=== PATIENT | male | born 1970 | race African-American/Black ===

== ENCOUNTER 2020-07-27 10:05 | Inpatient (IN) | payer OTHER ==
[2020-07-27] MEDS ORDERED: ACETAMINOPHEN 325 MG TABLET (FP) PO PRN ×2 (11:38)
[2020-07-27] MEDS ORDERED: chlordiazePOXIDE HCL 25 MG CAPSULE PO PRN (11:38)
[2020-07-27] MEDS ORDERED: MENTHOL/PHENOL 1 EACH UD MM PRN (11:38)
[2020-07-27] MEDS ORDERED: ONDANSETRON *ODT* 4 MG TABLET SL PRN (11:38)
[2020-07-27] MEDS ORDERED: MAG HYDROX/AL HYDROX/SIMETH 30 ML UNIT-DOSE CUP PO PRN (11:38)
[2020-07-27] MEDS ORDERED: BISMUTH SUBSALICYLATE 262 MG/15 ML BTL PO PRN (11:38)
[2020-07-27] MEDS ORDERED: IBUPROFEN 400 MG TABLET (FP) PO PRN (11:38)
[2020-07-27] MEDS ORDERED: NICOTINE POLACRILEX 2 MG GUM BUC PRN (11:38)
[2020-07-27] MEDS ORDERED: MAGNESIUM CITRATE 300 ML BOTTLE PO PRN (11:38)
[2020-07-27] MEDS ORDERED: MAGNESIUM HYDROX 2400MG/30ML ORAL SUSPENSION 30 ML CUP PO PRN (11:38)
[2020-07-27] MEDS ORDERED: METHOCARBAMOL 500 MG TABLET PO PRN (11:38)
[2020-07-27 11:43] VITALS: BMI 25.7
[2020-07-27] MEDS ORDERED: NICOTINE 7 MG/24 HOURS TOPICAL PATCH TD SCH (11:45)
[2020-07-27] MEDS: hydrOXYzine PAMOATE 25 MG CAPSULE (FP) PO SCH ×3 (14:27→22:21)
[2020-07-27 15:24] LABS: HEMATOCRIT 39.6 % (35.4-49); HEMOGLOBIN 13.8 GM/dL (11.7-16.9); MCH 36.1 pg (25.7-33.7); MCHC 34.7 g/dl (32.0-35.9); MEAN CELL VOLUME 104.1 fl (80-96); MEAN PLT VOLUME 7.7 fl (7.5-11.1); PLATELET COUNT 269 K/MM3 (134-434); RBC 3.81 M/mm3 (4.00-5.60); WHITE BLOOD COUNT 6.2 K/mm3 (4.0-10.0)
[2020-07-27 15:28] LABS: ALBUMIN 3.8 g/dl (3.4-5.0); BLOOD UREA NITROGEN 7.2 mg/dL (7-18)
[2020-07-27 15:32] LABS: CREATININE 0.8 mg/dL (0.55-1.3)
[2020-07-27 15:33] LABS: BILIRUBIN,TOTAL 1.3 mg/dL (0.2-1); TOT PROT 6.9 g/dl (6.4-8.2)
[2020-07-27] MEDS: chlordiazePOXIDE HCL 25 MG CAPSULE PO SCH ×2 (17:34→22:20)
[2020-07-27 21:15] VITALS: BP 125/72; PULSE 64; TEMP 97
[2020-07-27] MEDS ORDERED: MELATONIN 5 MG TABLETS PO SCH (22:00)
[2020-07-27] MEDS ORDERED: THIAMINE HCL 100 MG TABLET (FP) PO SCH (22:00)
[2020-07-28] MEDS ORDERED: PRENATAL VITAMINS W/ FOLIC ACID TABLET (FP) PO SCH (10:00)
[2020-07-29] MEDS ORDERED: chlordiazePOXIDE HCL 25 MG CAPSULE PO SCH (05:00)
[2020-07-30] MEDS ORDERED: chlordiazePOXIDE HCL 10 MG CAPSULE PO PRN
[2020-07-30] MEDS ORDERED: chlordiazePOXIDE HCL 10 MG CAPSULE PO SCH (05:00)
[2020-07-31] MEDS ORDERED: chlordiazePOXIDE HCL 10 MG CAPSULE PO SCH (05:00)
[2020-08-01] MEDS ORDERED: chlordiazePOXIDE HCL 10 MG CAPSULE PO ONE (05:00)
== END 2020-07-27 22:40 | disposition left against medical advice (07) | DRG 770 ==
LOC: YASAS 10:05 → Y6N 12:06
PROVIDERS: ADMIT Allergy & Immunology; ATTEND Allergy & Immunology
PROC: HZ2ZZZZ Detoxification Services for Substance Abuse Treatment (ICD-10-PCS; principal; 2020-07-27)
DX: F10.230 Alcohol dependence with withdrawal, uncomplicated (principal); F12.20 Cannabis dependence, uncomplicated; F17.290 Nicotine dependence, other tobacco product, uncomplicated; F20.9 Schizophrenia, unspecified; B35.1 Tinea unguium; Z59.0 Homelessness
CPT/HCPCS: 36415; 80053; 85027; 86780; 93005; 93010; C9803; U0003

== ENCOUNTER 2022-02-19 22:20 | Emergency (ER) | payer OTHER ==
[2022-02-19 22:43] VITALS: BP 124/76; PULSE 100; RESP 20; TEMP 98.1; BMI 27.6
== END 2022-02-19 23:30 | disposition left against medical advice (07) ==
LOC: JER 22:20
DX: S60.521A Blister (nonthermal) of right hand, initial encounter (principal); W22.8XXA Striking against or struck by other objects, initial encounter
CPT/HCPCS: 99281-25

== ENCOUNTER 2023-03-11 12:09 | Inpatient (IN) | payer OTHER ==
[2023-03-11 13:05] VITALS: BMI 27.6
[2023-03-11] MEDS ORDERED: IBUPROFEN 600 MG TABLET (FP) PO PRN (15:54)
[2023-03-11] MEDS ORDERED: chlordiazePOXIDE HCL 25 MG CAPSULE PO PRN (15:54)
[2023-03-11] MEDS ORDERED: BISMUTH SUBSALICYLATE 524 MG/30 ML PO PRN (15:54)
[2023-03-11] MEDS ORDERED: DICYCLOMINE HCL 10 MG CAPSULE PO PRN (15:54)
[2023-03-11] MEDS ORDERED: BENZOCAINE/MENTHOL (CHLORASEPTIC ) LOZENGE MM PRN (15:54)
[2023-03-11] MEDS ORDERED: BENZONATATE 200 MG CAPSULE PO PRN (15:54)
[2023-03-11] MEDS ORDERED: NICOTINE POLACRILEX 2 MG GUM BUC PRN (15:54)
[2023-03-11] MEDS ORDERED: METHOCARBAMOL 500 MG TABLET PO PRN (15:54)
[2023-03-11] MEDS ORDERED: hydrOXYzine PAMOATE 25 MG CAPSULE (FP) PO PRN (15:54)
[2023-03-11] MEDS ORDERED: guaiFENesin 600 MG TABLET.ER (FP) PO PRN (15:54)
[2023-03-11] MEDS ORDERED: ACETAMINOPHEN 325 MG TABLET (FP) PO PRN (15:54)
[2023-03-11] MEDS ORDERED: MAG HYDROX/AL HYDROX/SIMETH 30 ML UNIT-DOSE CUP PO PRN (15:54)
[2023-03-11] MEDS ORDERED: IBUPROFEN 400 MG TABLET (FP) PO PRN (15:54)
[2023-03-11] MEDS ORDERED: LOPERAMIDE HCL 2 MG CAPSULE PO PRN (15:54)
[2023-03-11] MEDS ORDERED: NALOXONE HCL 0.4 MG/ML VIAL IM PRN (15:54)
[2023-03-11] MEDS ORDERED: ONDANSETRON *ODT* 4 MG TABLET SL PRN (15:54)
[2023-03-11] MEDS ORDERED: MAGNESIUM HYDROX 2400MG/30ML ORAL SUSPENSION 30 ML CUP PO PRN (15:54)
[2023-03-11] MEDS ORDERED: POLYETHYLENE GLYCOL (HEALTHYLAX) 3350 17 GM PACKET PO PRN (15:54)
[2023-03-11] MEDS ORDERED: NALOXONE HCL (KLOXXADO) 8 MG SPRAY NS PRN (15:54)
[2023-03-11] MEDS: chlordiazePOXIDE HCL 25 MG CAPSULE PO SCH ×2 (16:54→22:16)
[2023-03-11] MEDS: MELATONIN 5 MG TABLETS PO SCH (22:16)
[2023-03-11] MEDS: THIAMINE HCL 100 MG TABLET (FP) PO SCH (22:16)
[2023-03-12] MEDS: chlordiazePOXIDE HCL 25 MG CAPSULE PO SCH ×4 (06:03→22:02)
[2023-03-12 09:51] LABS: HEMATOCRIT 40.3 % (35.4-49); HEMOGLOBIN 13.8 GM/dL (11.7-16.9); MCH 36.4 pg (25.7-33.7); MCHC 34.3 g/dl (32.0-35.9); MEAN CELL VOLUME 106.2 fl (80-96); MEAN PLT VOLUME 7.5 fl (7.5-11.1); PLATELET COUNT 237 10^3/uL (134-434); RBC 3.79 M/mm3 (4.00-5.60); RDW 13.3 % (11.9-15.9); WHITE BLOOD COUNT 7.3 K/mm3 (4.0-10.0)
[2023-03-12 09:53] LABS: POTASSIUM 3.4 mmol/L (3.5-5.1)
[2023-03-12 10:00] LABS: ALBUMIN 3.3 g/dl (3.4-5.0); BLOOD UREA NITROGEN 12.2 mg/dL (7-18); CALCIUM 9.3 mg/dL (8.5-10.1)
[2023-03-12 10:02] LABS: BILIRUBIN,TOTAL 0.3 mg/dL (0.2-1); CREATININE 0.9 mg/dL (0.55-1.3)
[2023-03-12 10:04] LABS: TOT PROT 6.2 g/dl (6.4-8.2)
[2023-03-12] MEDS: NICOTINE 21 MG/24 HOURS TOPICAL PATCH TD SCH (10:09)
[2023-03-12] MEDS: PRENATAL VITAMINS W/ FOLIC ACID TABLET (FP) PO SCH (10:09)
[2023-03-12] MEDS: OLANZapine 5 MG TABLET PO SCH ×2 (10:43→22:01)
[2023-03-12] MEDS: POTASSIUM CHLORIDE ORAL LIQUID 20 MEQ/15 ML PO SCH ×2 (12:55→22:01)
[2023-03-12 18:25] LABS: EPI CELLS 8 /uL (0-25.1); HYALINE CASTS 4 /uL (0-3.1); PH,URINE 6.5 (5.0-8.0); URINE APPEARANCE CLOUDY; URINE BACTERIA 3604 /uL (0-1359); URINE BILIRUBIN NEGATIVE (NEGATIVE); URINE COLOR YELLOW; URINE GLUCOSE (UA) NEGATIVE (NEGATIVE); URINE KETONE NEGATIVE (NEGATIVE); URINE LEUK ESTERASE 3+ (NEGATIVE); URINE NITRITE POSITIVE (NEGATIVE); URINE PROTEIN NEGATIVE (NEGATIVE); URINE RBC 13 /uL (0-23.9); URINE WBC 389 /uL (0-25.8)
[2023-03-12] MEDS: MELATONIN 5 MG TABLETS PO SCH (22:00)
[2023-03-12] MEDS: THIAMINE HCL 100 MG TABLET (FP) PO SCH (22:00)
[2023-03-13] MEDS: chlordiazePOXIDE HCL 25 MG CAPSULE PO SCH ×4 (05:31→22:14)
[2023-03-13] MEDS: PRENATAL VITAMINS W/ FOLIC ACID TABLET (FP) PO SCH (10:13)
[2023-03-13] MEDS: POTASSIUM CHLORIDE ORAL LIQUID 20 MEQ/15 ML PO SCH ×2 (10:13→22:14)
[2023-03-13] MEDS: NICOTINE 21 MG/24 HOURS TOPICAL PATCH TD SCH (10:14)
[2023-03-13] MEDS: OLANZapine 5 MG TABLET PO SCH ×2 (10:14→22:14)
[2023-03-13] MEDS: THIAMINE HCL 100 MG TABLET (FP) PO SCH (22:14)
[2023-03-13] MEDS: MELATONIN 5 MG TABLETS PO SCH (22:14)
[2023-03-14] MEDS ORDERED: chlordiazePOXIDE HCL 10 MG CAPSULE PO PRN
[2023-03-14] MEDS: chlordiazePOXIDE HCL 10 MG CAPSULE PO SCH ×4 (05:35→22:19)
[2023-03-14] MEDS: POTASSIUM CHLORIDE ORAL LIQUID 20 MEQ/15 ML PO SCH (10:36)
[2023-03-14] MEDS: OLANZapine 5 MG TABLET PO SCH ×2 (10:37→22:19)
[2023-03-14] MEDS: PRENATAL VITAMINS W/ FOLIC ACID TABLET (FP) PO SCH (10:37)
[2023-03-14] MEDS: NICOTINE 21 MG/24 HOURS TOPICAL PATCH TD SCH (10:37)
[2023-03-14] MEDS: MELATONIN 5 MG TABLETS PO SCH (22:19)
[2023-03-14] MEDS: THIAMINE HCL 100 MG TABLET (FP) PO SCH (22:19)
[2023-03-15] MEDS: chlordiazePOXIDE HCL 10 MG CAPSULE PO SCH ×2 (05:27→17:33)
[2023-03-15] MEDS: OLANZapine 5 MG TABLET PO SCH ×2 (10:26→22:19)
[2023-03-15] MEDS: NICOTINE 21 MG/24 HOURS TOPICAL PATCH TD SCH (10:26)
[2023-03-15] MEDS: PRENATAL VITAMINS W/ FOLIC ACID TABLET (FP) PO SCH (10:26)
[2023-03-15] MEDS: THIAMINE HCL 100 MG TABLET (FP) PO SCH (22:19)
[2023-03-15] MEDS: MELATONIN 5 MG TABLETS PO SCH (22:19)
[2023-03-16] MEDS ORDERED: chlordiazePOXIDE HCL 10 MG CAPSULE PO ONE (05:00)
[2023-03-16] MEDS: PRENATAL VITAMINS W/ FOLIC ACID TABLET (FP) PO SCH (10:24)
[2023-03-16] MEDS: NICOTINE 21 MG/24 HOURS TOPICAL PATCH TD SCH (10:24)
[2023-03-16] MEDS: OLANZapine 5 MG TABLET PO SCH (10:25)
[2023-03-16 13:16] VITALS: BP 117/73; PULSE 95; RESP 20; TEMP 98.4
== END 2023-03-16 14:07 | disposition other institution (70) | DRG 775 ==
LOC: YASAS 12:09 → Y3N 16:34
PROVIDERS: ADMIT Allergy & Immunology; ATTEND Surgery
PROC: HZ2ZZZZ Detoxification Services for Substance Abuse Treatment (ICD-10-PCS; principal; 2023-03-11)
DX: F10.230 Alcohol dependence with withdrawal, uncomplicated (principal); F12.20 Cannabis dependence, uncomplicated; F17.210 Nicotine dependence, cigarettes, uncomplicated; F20.9 Schizophrenia, unspecified; E87.6 Hypokalemia; Z86.59 Personal history of other mental and behavioral disorders; Z56.0 Unemployment, unspecified; Z59.00 Homelessness unspecified
CPT/HCPCS: 36415; 80053; 81003; 84132; 85027; 86780; 87086; 87635; 87811; 93005; 93010

== ENCOUNTER 2023-07-01 08:29 | Inpatient (IN) | payer SELFPAY ==
[2023-07-01 09:52] VITALS: BMI 27.4
[2023-07-01] MEDS ORDERED: NALOXONE HCL 0.4 MG/ML VIAL IM PRN (10:45)
[2023-07-01] MEDS ORDERED: guaiFENesin 600 MG TABLET.ER (FP) PO PRN (10:45)
[2023-07-01] MEDS ORDERED: IBUPROFEN 600 MG TABLET (FP) PO PRN (10:45)
[2023-07-01] MEDS ORDERED: ONDANSETRON *ODT* 4 MG TABLET SL PRN (10:45)
[2023-07-01] MEDS ORDERED: MAG HYDROX/AL HYDROX/SIMETH 30 ML UNIT-DOSE CUP PO PRN (10:45)
[2023-07-01] MEDS ORDERED: METHOCARBAMOL 500 MG TABLET PO PRN (10:45)
[2023-07-01] MEDS ORDERED: BISMUTH SUBSALICYLATE 524 MG/30 ML PO PRN (10:45)
[2023-07-01] MEDS ORDERED: hydrOXYzine PAMOATE 25 MG CAPSULE (FP) PO PRN (10:45)
[2023-07-01] MEDS ORDERED: BENZOCAINE/MENTHOL (CHLORASEPTIC ) LOZENGE MM PRN (10:45)
[2023-07-01] MEDS ORDERED: NICOTINE POLACRILEX 2 MG GUM BUC PRN (10:45)
[2023-07-01] MEDS ORDERED: NALOXONE HCL (KLOXXADO) 8 MG SPRAY NS PRN (10:45)
[2023-07-01] MEDS ORDERED: DICYCLOMINE HCL 10 MG CAPSULE PO PRN (10:45)
[2023-07-01] MEDS ORDERED: BENZONATATE 200 MG CAPSULE PO PRN (10:45)
[2023-07-01] MEDS ORDERED: MAGNESIUM HYDROX 2400MG/30ML ORAL SUSPENSION 30 ML CUP PO PRN (10:45)
[2023-07-01] MEDS ORDERED: IBUPROFEN 400 MG TABLET (FP) PO PRN (10:45)
[2023-07-01] MEDS ORDERED: ACETAMINOPHEN 325 MG TABLET (FP) PO PRN (10:45)
[2023-07-01] MEDS ORDERED: chlordiazePOXIDE HCL 25 MG CAPSULE PO PRN (10:45)
[2023-07-01] MEDS ORDERED: LOPERAMIDE HCL 2 MG CAPSULE PO PRN (10:45)
[2023-07-01] MEDS ORDERED: POLYETHYLENE GLYCOL (HEALTHYLAX) 3350 17 GM PACKET PO PRN (10:45)
[2023-07-01] MEDS: chlordiazePOXIDE HCL 25 MG CAPSULE PO SCH ×2 (17:35→22:36)
[2023-07-01] MEDS ORDERED: THIAMINE HCL 100 MG TABLET (FP) PO SCH (22:00)
[2023-07-01] MEDS ORDERED: MELATONIN 5 MG TABLETS PO SCH (22:00)
[2023-07-02] MEDS: chlordiazePOXIDE HCL 25 MG CAPSULE PO SCH ×2 (06:00→10:33)
[2023-07-02 09:45] LABS: CHLORIDE 110 mmol/L (98-107); SODIUM 144 mmol/L (136-145)
[2023-07-02 09:54] LABS: CALCIUM 8.9 mg/dL (8.5-10.1)
[2023-07-02 09:55] LABS: ALBUMIN 3.2 g/dl (3.4-5.0); ANION GAP 5 mmol/L (4-13); BLOOD UREA NITROGEN 14.9 mg/dL (7-18); CO2 29 mmol/L (21-32); GLUCOSE,RANDOM 97 mg/dL (74-106)
[2023-07-02 09:58] LABS: CREATININE 0.8 mg/dL (0.55-1.3); SGOT/AST 13 U/L (15-37); SGPT/ALT 17 U/L (13-61)
[2023-07-02 09:59] LABS: HEMATOCRIT 37.3 % (35.4-49); HEMOGLOBIN 12.7 GM/dL (11.7-16.9); MCH 34.1 pg (25.7-33.7); MCHC 33.9 g/dl (32.0-35.9); MEAN CELL VOLUME 100.5 fl (80-96); MEAN PLT VOLUME 8.1 fl (7.5-11.1); PLATELET COUNT 265 10^3/uL (134-434); RBC 3.71 M/mm3 (4.00-5.60); RDW 12.3 % (11.9-15.9); TOT PROT 5.9 g/dl (6.4-8.2); WHITE BLOOD COUNT 7.2 K/mm3 (4.0-10.0)
[2023-07-02 10:00] LABS: BILIRUBIN,TOTAL 0.3 mg/dL (0.2-1)
[2023-07-02] MEDS ORDERED: NICOTINE 21 MG/24 HOURS TOPICAL PATCH TD SCH (10:00)
[2023-07-02] MEDS ORDERED: PRENATAL VITAMINS W/ FOLIC ACID TABLET (FP) PO SCH (10:00)
[2023-07-02 10:01] LABS: ALK PHOS 85 U/L (45-117)
[2023-07-02 11:51] LABS: HIV INTERPRETATION NEGATIVE (NEGATIVE)
[2023-07-02 12:44] VITALS: BP 129/83; PULSE 98; RESP 18; TEMP 98.2
[2023-07-02] MEDS ORDERED: OLANZapine 10 MG TABLET PO SCH (22:00)
[2023-07-03] MEDS ORDERED: chlordiazePOXIDE HCL 25 MG CAPSULE PO SCH (05:00)
[2023-07-04] MEDS ORDERED: chlordiazePOXIDE HCL 10 MG CAPSULE PO PRN
[2023-07-04] MEDS ORDERED: chlordiazePOXIDE HCL 10 MG CAPSULE PO SCH (05:00)
[2023-07-05] MEDS ORDERED: chlordiazePOXIDE HCL 10 MG CAPSULE PO SCH (05:00)
[2023-07-06] MEDS ORDERED: chlordiazePOXIDE HCL 10 MG CAPSULE PO ONE (05:00)
== END 2023-07-02 12:29 | disposition left against medical advice (07) | DRG 770 ==
LOC: YASAS 08:29 → SUATTDRO 08:29 → Y3N 12:32
PROVIDERS: ADMIT Allergy & Immunology; ATTEND Surgery
PROC: HZ2ZZZZ Detoxification Services for Substance Abuse Treatment (ICD-10-PCS; principal; 2023-07-01)
DX: F10.230 Alcohol dependence with withdrawal, uncomplicated (principal); F12.20 Cannabis dependence, uncomplicated; F17.210 Nicotine dependence, cigarettes, uncomplicated; F20.9 Schizophrenia, unspecified; R00.0 Tachycardia, unspecified; Z56.0 Unemployment, unspecified; Z59.00 Homelessness unspecified
CPT/HCPCS: 36415; 80053; 80307; 85027; 86780; 87389; 87635; 87811

== ENCOUNTER 2023-08-05 20:43 | Inpatient (IN) | payer OTHER ==
[2023-08-05 21:41] VITALS: BMI 26.6
[2023-08-05] MEDS ORDERED: NALOXONE HCL (KLOXXADO) 8 MG SPRAY NS PRN (22:16)
[2023-08-05] MEDS ORDERED: MAGNESIUM HYDROX 2400MG/30ML ORAL SUSPENSION 30 ML CUP PO PRN (22:16)
[2023-08-05] MEDS ORDERED: LOPERAMIDE HCL 2 MG CAPSULE PO PRN (22:16)
[2023-08-05] MEDS ORDERED: DICYCLOMINE HCL 10 MG CAPSULE PO PRN (22:16)
[2023-08-05] MEDS ORDERED: BENZOCAINE/MENTHOL (CHLORASEPTIC ) LOZENGE MM PRN (22:16)
[2023-08-05] MEDS ORDERED: POLYETHYLENE GLYCOL (HEALTHYLAX) 3350 17 GM PACKET PO PRN (22:16)
[2023-08-05] MEDS ORDERED: BISMUTH SUBSALICYLATE 524 MG/30 ML PO PRN (22:16)
[2023-08-05] MEDS ORDERED: BENZONATATE 200 MG CAPSULE PO PRN (22:16)
[2023-08-05] MEDS ORDERED: NICOTINE POLACRILEX 4 MG GUM BUC PRN (22:16)
[2023-08-05] MEDS ORDERED: ACETAMINOPHEN 325 MG TABLET (FP) PO PRN (22:16)
[2023-08-05] MEDS ORDERED: IBUPROFEN 400 MG TABLET (FP) PO PRN (22:16)
[2023-08-05] MEDS ORDERED: NALOXONE HCL 0.4 MG/ML VIAL IM PRN (22:16)
[2023-08-05] MEDS ORDERED: MAG HYDROX/AL HYDROX/SIMETH 30 ML UNIT-DOSE CUP PO PRN (22:16)
[2023-08-05] MEDS ORDERED: ONDANSETRON *ODT* 4 MG TABLET SL PRN (22:16)
[2023-08-05] MEDS ORDERED: guaiFENesin 600 MG TABLET.ER (FP) PO PRN (22:16)
[2023-08-05] MEDS ORDERED: IBUPROFEN 600 MG TABLET (FP) PO PRN (22:16)
[2023-08-06 10:17] LABS: CHLORIDE 108 mmol/L (98-107); POTASSIUM 4.3 mmol/L (3.5-5.1); SODIUM 140 mmol/L (136-145)
[2023-08-06 10:20] LABS: ALBUMIN 3.3 g/dl (3.4-5.0); ANION GAP 4 mmol/L (4-13); BLOOD UREA NITROGEN 14.3 mg/dL (7-18); CALCIUM 8.7 mg/dL (8.5-10.1); CO2 28 mmol/L (21-32); GLUCOSE,RANDOM 97 mg/dL (74-106)
[2023-08-06 10:23] LABS: CREATININE 0.9 mg/dL (0.55-1.3); SGOT/AST 28 U/L (15-37); SGPT/ALT 37 U/L (13-61)
[2023-08-06 10:25] LABS: BILIRUBIN,TOTAL 0.5 mg/dL (0.2-1); TOT PROT 6.7 g/dl (6.4-8.2)
[2023-08-06] MEDS: NICOTINE 21 MG/24 HOURS TOPICAL PATCH TD SCH (10:25)
[2023-08-06] MEDS: PRENATAL VITAMINS W/ FOLIC ACID TABLET (FP) PO SCH (10:25)
[2023-08-06 10:26] LABS: ALK PHOS 95 U/L (45-117)
[2023-08-06 10:30] LABS: HEMATOCRIT 40.1 % (35.4-49); HEMOGLOBIN 13.5 GM/dL (11.7-16.9); MCHC 33.6 g/dl (32.0-35.9); MEAN CELL VOLUME 104.2 fl (80-96); MEAN PLT VOLUME 7.4 fl (7.5-11.1); PLATELET COUNT 272 10^3/uL (134-434); RBC 3.85 M/mm3 (4.00-5.60); RDW 14.2 % (11.9-15.9); WHITE BLOOD COUNT 8.9 K/mm3 (4.0-10.0)
[2023-08-06] MEDS: THIAMINE HCL 100 MG TABLET (FP) PO SCH (22:39)
[2023-08-06] MEDS: MELATONIN 5 MG TABLETS PO SCH (22:39)
[2023-08-06] MEDS: OLANZapine 10 MG TABLET PO SCH (22:39)
[2023-08-06] MEDS ORDERED: chlordiazePOXIDE HCL 25 MG CAPSULE PO PRN (23:02)
[2023-08-06] MEDS: chlordiazePOXIDE HCL 25 MG CAPSULE PO SCH (23:52)
[2023-08-07] MEDS: chlordiazePOXIDE HCL 25 MG CAPSULE PO SCH ×4 (05:55→22:31)
[2023-08-07] MEDS: PRENATAL VITAMINS W/ FOLIC ACID TABLET (FP) PO SCH (10:09)
[2023-08-07] MEDS: NICOTINE 21 MG/24 HOURS TOPICAL PATCH TD SCH (10:09)
[2023-08-07] MEDS: THIAMINE HCL 100 MG TABLET (FP) PO SCH (22:31)
[2023-08-07] MEDS: MELATONIN 5 MG TABLETS PO SCH (22:31)
[2023-08-07] MEDS: OLANZapine 10 MG TABLET PO SCH (22:31)
[2023-08-08] MEDS: chlordiazePOXIDE HCL 25 MG CAPSULE PO SCH ×2 (05:46→10:22)
[2023-08-08 10:01] VITALS: PULSE 90; TEMP 98
[2023-08-08] MEDS: PRENATAL VITAMINS W/ FOLIC ACID TABLET (FP) PO SCH (10:22)
[2023-08-08] MEDS: NICOTINE 21 MG/24 HOURS TOPICAL PATCH TD SCH (10:23)
[2023-08-08 13:44] VITALS: BP 112/67; RESP 17
[2023-08-09] MEDS ORDERED: chlordiazePOXIDE HCL 10 MG CAPSULE PO PRN
[2023-08-09] MEDS ORDERED: chlordiazePOXIDE HCL 10 MG CAPSULE PO SCH (05:00)
[2023-08-10] MEDS ORDERED: chlordiazePOXIDE HCL 10 MG CAPSULE PO SCH (05:00)
[2023-08-11] MEDS ORDERED: chlordiazePOXIDE HCL 10 MG CAPSULE PO ONE (05:00)
== END 2023-08-08 14:15 | disposition left against medical advice (07) | DRG 770 ==
LOC: YASAS 20:43 → Y3N 22:41 → UNDOADMIN 22:41 → Y3N 23:04 → UNDODISIN 08-08 14:15
PROVIDERS: ADMIT Allergy & Immunology; ATTEND Allergy & Immunology
PROC: HZ2ZZZZ Detoxification Services for Substance Abuse Treatment (ICD-10-PCS; principal; 2023-08-05)
DX: F10.230 Alcohol dependence with withdrawal, uncomplicated (principal); F12.20 Cannabis dependence, uncomplicated; F17.210 Nicotine dependence, cigarettes, uncomplicated; F20.9 Schizophrenia, unspecified; F10.280 Alcohol dependence with alcohol-induced anxiety disorder; F10.282 Alcohol dependence with alcohol-induced sleep disorder; Z56.0 Unemployment, unspecified; Z59.00 Homelessness unspecified
CPT/HCPCS: 36415; 80053; 80307; 85027; 86780; 87635

== ENCOUNTER 2023-08-23 21:36 | Inpatient (IN) | payer OTHER ==
[2023-08-23] MEDS ORDERED: NICOTINE POLACRILEX 2 MG LOZENGE BC PRN (22:48)
[2023-08-23] MEDS ORDERED: LOPERAMIDE HCL 2 MG CAPSULE PO PRN (22:48)
[2023-08-23] MEDS ORDERED: hydrOXYzine PAMOATE 25 MG CAPSULE (FP) PO PRN (22:48)
[2023-08-23] MEDS ORDERED: DICYCLOMINE HCL 10 MG CAPSULE PO PRN (22:48)
[2023-08-23] MEDS ORDERED: MAGNESIUM HYDROX 2400MG/30ML ORAL SUSPENSION 30 ML CUP PO PRN (22:48)
[2023-08-23] MEDS ORDERED: POLYETHYLENE GLYCOL (HEALTHYLAX) 3350 17 GM PACKET PO PRN (22:48)
[2023-08-23] MEDS ORDERED: BENZOCAINE/MENTHOL (CHLORASEPTIC ) LOZENGE MM PRN (22:48)
[2023-08-23] MEDS ORDERED: ACETAMINOPHEN 325 MG TABLET (FP) PO PRN (22:48)
[2023-08-23] MEDS ORDERED: IBUPROFEN 400 MG TABLET (FP) PO PRN (22:48)
[2023-08-23] MEDS ORDERED: NALOXONE HCL 0.4 MG/ML VIAL IM PRN (22:48)
[2023-08-23] MEDS ORDERED: IBUPROFEN 600 MG TABLET (FP) PO PRN (22:48)
[2023-08-23] MEDS ORDERED: NALOXONE HCL (KLOXXADO) 8 MG SPRAY NS PRN (22:48)
[2023-08-23] MEDS ORDERED: ONDANSETRON *ODT* 4 MG TABLET SL PRN (22:48)
[2023-08-23] MEDS ORDERED: BISMUTH SUBSALICYLATE 524 MG/30 ML PO PRN (22:48)
[2023-08-23] MEDS ORDERED: MAG HYDROX/AL HYDROX/SIMETH 30 ML UNIT-DOSE CUP PO PRN (22:48)
[2023-08-23] MEDS ORDERED: guaiFENesin 600 MG TABLET.ER (FP) PO PRN (22:48)
[2023-08-23] MEDS ORDERED: BENZONATATE 200 MG CAPSULE PO PRN (22:48)
[2023-08-23 23:12] VITALS: BMI 27.6
[2023-08-24] MEDS: SERTRALINE HCL 50 MG TABLET (FP) PO SCH (10:10)
[2023-08-24] MEDS: PRENATAL VITAMINS W/ FOLIC ACID TABLET (FP) PO SCH (10:10)
[2023-08-24] MEDS: NICOTINE 21 MG/24 HOURS TOPICAL PATCH TD SCH (10:11)
[2023-08-24] MEDS: diazePAM 5 MG TABLET PO SCH (14:41)
[2023-08-24] MEDS: MELATONIN 5 MG TABLETS PO SCH (22:22)
[2023-08-24] MEDS: THIAMINE HCL 100 MG TABLET (FP) PO SCH (22:23)
[2023-08-24] MEDS: OLANZapine 10 MG TABLET PO SCH (22:23)
[2023-08-25] MEDS: diazePAM 5 MG TABLET PO SCH (05:31)
[2023-08-25] MEDS: METHOCARBAMOL 500 MG TABLET PO PRN (22:43)
[2023-08-26] MEDS: diazePAM 5 MG TABLET PO ONE (05:58)
[2023-08-26 10:55] VITALS: BP 112/63; PULSE 72; RESP 16; TEMP 97.8
== END 2023-08-26 11:35 | disposition home or self-care (01) | DRG 775 ==
LOC: YASAS 21:36 → Y3N 08-24 00:34 → Y6N 08-24 01:25
PROVIDERS: ADMIT Allergy & Immunology; ATTEND Surgery
PROC: HZ2ZZZZ Detoxification Services for Substance Abuse Treatment (ICD-10-PCS; principal; 2023-08-24)
DX: F10.230 Alcohol dependence with withdrawal, uncomplicated (principal); F16.20 Hallucinogen dependence, uncomplicated; F12.20 Cannabis dependence, uncomplicated; F10.220 Alcohol dependence with intoxication, uncomplicated; F17.210 Nicotine dependence, cigarettes, uncomplicated; F20.9 Schizophrenia, unspecified; F19.282 Other psychoactive substance dependence with psychoactive substance-induced sleep disorder; F19.280 Other psychoactive substance dependence with psychoactive substance-induced anxiety disorder
CPT/HCPCS: 36415; 80307; 87635

== ENCOUNTER 2023-08-31 03:09 | Inpatient (IN) | payer OTHER ==
[2023-08-31 03:38] VITALS: BMI 28.3
[2023-08-31] MEDS ORDERED: guaiFENesin 600 MG TABLET.ER (FP) PO PRN (04:14)
[2023-08-31] MEDS ORDERED: NALOXONE HCL (KLOXXADO) 8 MG SPRAY NS PRN (04:14)
[2023-08-31] MEDS ORDERED: MAGNESIUM HYDROX 2400MG/30ML ORAL SUSPENSION 30 ML CUP PO PRN (04:14)
[2023-08-31] MEDS ORDERED: NALOXONE HCL 0.4 MG/ML VIAL IM PRN (04:14)
[2023-08-31] MEDS ORDERED: ACETAMINOPHEN 325 MG TABLET (FP) PO PRN (04:14)
[2023-08-31] MEDS ORDERED: IBUPROFEN 600 MG TABLET (FP) PO PRN (04:14)
[2023-08-31] MEDS ORDERED: hydrOXYzine PAMOATE 25 MG CAPSULE (FP) PO PRN (04:14)
[2023-08-31] MEDS ORDERED: BENZOCAINE/MENTHOL (CHLORASEPTIC ) LOZENGE MM PRN (04:14)
[2023-08-31] MEDS ORDERED: IBUPROFEN 400 MG TABLET (FP) PO PRN (04:14)
[2023-08-31] MEDS ORDERED: MAG HYDROX/AL HYDROX/SIMETH 30 ML UNIT-DOSE CUP PO PRN (04:14)
[2023-08-31] MEDS ORDERED: NICOTINE POLACRILEX 2 MG GUM BUC PRN (04:14)
[2023-08-31] MEDS ORDERED: POLYETHYLENE GLYCOL (HEALTHYLAX) 3350 17 GM PACKET PO PRN (04:14)
[2023-08-31] MEDS ORDERED: BENZONATATE 200 MG CAPSULE PO PRN (04:14)
[2023-08-31] MEDS ORDERED: LOPERAMIDE HCL 2 MG CAPSULE PO PRN (04:14)
[2023-08-31] MEDS: NICOTINE 21 MG/24 HOURS TOPICAL PATCH TD SCH (10:04)
[2023-08-31] MEDS: PRENATAL VITAMINS W/ FOLIC ACID TABLET (FP) PO SCH (10:05)
[2023-08-31] MEDS ORDERED: NICOTINE 21 MG/24 HOURS TOPICAL PATCH ONE (10:29)
[2023-08-31] MEDS ORDERED: PRENATAL VITAMINS W/ FOLIC ACID TABLET (FP) PO ONE (10:30)
[2023-08-31 11:18] VITALS: BP 112/72; PULSE 68; RESP 16; TEMP 97.7
[2023-08-31] MEDS: SERTRALINE HCL 50 MG TABLET (FP) PO SCH (11:57)
[2023-08-31] MEDS ORDERED: OLANZapine 10 MG TABLET PO SCH (22:00)
[2023-08-31] MEDS ORDERED: MELATONIN 5 MG TABLETS PO SCH (22:00)
[2023-08-31] MEDS ORDERED: THIAMINE HCL 100 MG TABLET (FP) PO SCH (22:00)
== END 2023-08-31 14:45 | disposition left against medical advice (07) | DRG 770 ==
LOC: YASAS 03:09 → Y3NR 09:43 → Y3W 10:25
PROVIDERS: ADMIT Allergy & Immunology; ATTEND Psychiatry & Neurology Pain Medicine
PROC: HZ42ZZZ Group Counseling for Substance Abuse Treatment, Cognitive-Behavioral (ICD-10-PCS; principal; 2023-08-31)
DX: F10.20 Alcohol dependence, uncomplicated (principal); F16.20 Hallucinogen dependence, uncomplicated; F12.20 Cannabis dependence, uncomplicated; F17.210 Nicotine dependence, cigarettes, uncomplicated; F20.9 Schizophrenia, unspecified; F10.280 Alcohol dependence with alcohol-induced anxiety disorder; F10.282 Alcohol dependence with alcohol-induced sleep disorder; Z56.0 Unemployment, unspecified; Z59.00 Homelessness unspecified
CPT/HCPCS: 36415; 80305; 80307; 87635